=== PATIENT | female | born 1935 ===

== ENCOUNTER 2018-08-04 09:00 | Day surgery (SDC) | payer OTHER ==
[2018-08-02 17:31] VITALS: BMI 17.9
--- NOTE | 2018-08-04 08:33 | HP ---
Satellite [facility] [place] - Chief Complaint Chief Complaint: left shoulder pain - Past Medical History Allergies/Adverse Reactions: Allergies Allergy/AdvReac Type Severity Reaction Status Date / Time Penicillins Allergy "i don't Verified 08/02/18 17:39 know what happens" - Current Medications Current Medications: Home Medications Medication Instructions Recorded Acetaminophen [Tylenol] 650 mg PO PRN PRN 08/02/18 Ergocalciferol (Vitamin D2) 50,000 unit PO MONTHLY 08/02/18 [Vitamin D2] Folic Acid 1 mg PO DAILY 08/02/18 Oxycodone HCl/Acetaminophen 1 - 2 tab PO Q6H #30 tab MDD 6 08/04/18 [Percocet 5-325 mg Tablet] Satellite Physical Exam - Physical Examination General Appearance: Well Nourished, Well Developed, Alert & Oriented x3 ENT: Clear Lung: Normal air movement Heart: Regular rate & rhythm Extremities: Other (left shoulder- + swelling, + ttp, decr rom, nvi, xrays show displaced proximal humerus fx) Neurological: Intact, Alert, Oriented Satellite Impression/Plan - Impression/Plan Impression: left proximal humerus fx Operative Procedure: left proximal humerus orif Date to be Performed: 08/04/18
[2018-08-04] MEDS ORDERED: BUPIVACAINE HCL/PF 0.5% (5MG/ML) 10 ML VIAL ONE (09:55)
[2018-08-04] MEDS ORDERED: MIDAZOLAM HCL 2 MG/2 ML SINGLE DOSE VIAL ONE ×2 (09:56)
[2018-08-04] MEDS ORDERED: LIDOCAINE HCL/PF 2% SDV 5ML VIAL ONE (10:46)
[2018-08-04] MEDS ORDERED: PROPOFOL 20 ML ONE (10:46)
[2018-08-04] MEDS ORDERED: ceFAZolin SODIUM 1 GM VIAL ONE (11:14)
[2018-08-04] MEDS ORDERED: CEFAZOLIN 1 GM in DEXTROSE 5%-WATER - 50 ML IVPB ONE (12:02)
--- NOTE | 2018-08-04 12:02 | OP ---
Operative Note - Note: Operative Date: 08/04/18 ([facility]) Pre-Operative Diagnosis: left proximal humerus fx Operation: left humerus IM josefina Post-Operative Diagnosis: Same as Pre-op Surgeon: Reagan Ramirez Abstract Writer: Richar Ayers Anesthesiologist/COOK HELPER: Juan Patel Anesthesia: General, Local Estimated Blood Loss (mls): 25 Operative Report Dictated: Yes
--- NOTE | 2018-08-04 12:55 | OP ---
DATE OF OPERATION: 08/04/2018 PREOPERATIVE DIAGNOSIS: Left proximal humeral shaft fracture. POSTOPERATIVE DIAGNOSIS: Left proximal humeral shaft fracture. PROCEDURE: Intramedullary rodding, left proximal humerus fracture. SURGICAL ATTENDING: Dorcas Ramirez MD CHIEF OF POLICE: TINO Horowitz ANESTHESIA: Regional and sedation. CLOSURE: A short [place] proximal humeral nail with 3 proximal and 2 distal interlocking screws; 0 Vicryl for the deltoid, and 2-0 subcutaneous, david to skin. ESTIMATED BLOOD LOSS: Negligible. COMPLICATIONS: None. CONDITION: To recovery in stable condition. DESCRIPTION OF THE PROCEDURE: Patient taken to the operating room on August 04, 2018. Regional anesthesia, as well as IV sedation was administered by the anesthesiologist. IV Kefzol was administered prophylactically prior to the case. The patient was placed in the beach-chair position with all prominences well padded. Left shoulder area was prepped and draped in the usual sterile fashion. A small 2-cm longitudinal incision over the anterolateral corner of the acromion was incised. Hemostasis achieved using Bovie cautery. Blunt dissection was carried longitudinally, spreading the fibers of the deltoid, exposing the subacromial space. A guidewire was drilled from the tip of the greater trochanter into the intramedullary canal. It was overreamed with a proximal starter reamer. A ball-guide tip was placed down the intramedullary canal. A closed reduction of the fracture was then performed and then the guide wire was passed into the distal intramedullary canal down to the elbow. The intramedullary canal was sounded with a reamer to ensure proper diameter to allow the short nail to pass. The short nail was then malleted down into place, being below the bony surface proximally, but proximal enough to grab proximally with the proximal locking screws. Using the outrigger, 3 proximal screws were drilled, depth gauged, and screwed, through the josefina, into the proximal humerus. One was directly lateral to medial. One was more from anterolateral to posteromedial. One was from posterolateral to anteromedial. These achieved excellent fixation to both the josefina and the proximal humerus. The distal humeral shaft was pushed up into the proximal shaft to allow the bones to interdigitate. The outrigger was then used to place 2 distal locking screws through 2 small stab incisions from lateral to medial, by first drilling, depth gauging, and screwing the appropriate-sized screws. The outrigger was removed. The shoulder was taken through a range of motion and found to have excellent stability of the fracture with excellent reduction. The incisions were irrigated. The deltoid was closed using 0 Vicryl, 2-0 for subcutaneous, and david for skin and for the stab incisions to perform the interlocking portion of the case. A sterile Aquacel dressing, followed by a sling was applied. Patient was awakened from anesthesia and transferred to recovery in stable condition. No complications. Estimated blood loss negligible. DORCAS ARMIREZ M.D. [id number]
[2018-08-04] MEDS ORDERED: oxyCODONE HCL 5 MG TABLET PO PRN (12:58)
[2018-08-04] MEDS ORDERED: ONDANSETRON 4 MG/2 ML VIAL IVPUSH PRN (12:58)
[2018-08-04] MEDS ORDERED: LACTATED RINGERS SOLUTION 1,000 ML IV SCH (13:00)
[2018-08-04] MEDS ORDERED: CEFAZOLIN 1 GM/D5W 1 GM/50 ML BAG ONE (15:19)
[2018-08-04 17:59] VITALS: BP 133/73; PULSE 100; TEMP 97.8
== END 2018-08-04 16:30 | disposition home or self-care (01) ==
LOC: JASU-SURG 09:00
PROVIDERS: ATTEND Orthopaedic Surgery
PROC: 0PSG06Z Reposition Left Humeral Shaft with Intramedullary Internal Fixation Device, Open Approach (ICD-10-PCS; principal; 2018-08-04 10:30)
DX: S42.392A Other fracture of shaft of left humerus, initial encounter for closed fracture (principal); X58.XXXA Exposure to other specified factors, initial encounter; Y93.9 Activity, unspecified; Y92.9 Unspecified place or not applicable; Y99.9 Unspecified external cause status
CPT/HCPCS: 24516; C1713; 76000-TC-FY; 94760